=== PATIENT | male | born 1995 | race Hispanic/Latino ===

== ENCOUNTER 2017-05-05 03:05 | Emergency (ER) | payer OTHER ==
--- NOTE | 2017-05-05 04:01 | ED PDOC ---
HPI: Psych/Substance Abuse Time Seen by Provider: 05/05/17 03:39 Chief Complaint (Nursing): Alcohol Ingestion Chief Complaint (Provider): Alcohol Intoxication ED Caveat: Intoxicated History Per: Patient History/Exam Limitations: intoxication Onset/Duration Of Symptoms: Unknown Current Symptoms Are (Timing): Still Present Additional History Per: EMS Additional Complaint(s): Suman is a 21 y/o male who was brought to the ED via EMS for public intoxication. Additional history cannot be obtained due to patient's inability to answer. PMD: None Provided Past Medical History Reviewed: Historical Data, Nursing Documentation, Vital Signs Vital Signs: Last Vital Signs Temp 97.8 F 05/05/17 03:06 Pulse 121 H 05/05/17 03:06 Resp 16 05/05/17 03:06 BP 145/81 05/05/17 03:06 Pulse Ox 98 05/05/17 03:06 - Family History Family History: States: Unknown Family Hx - Allergies Allergies/Adverse Reactions: Allergies Allergy/AdvReac Type Severity Reaction Status Date / Time No Known Allergies Allergy Verified 05/05/17 03:13 Review of Systems Review Of Systems: ROS cannot be obtained secondary to pt's inabilty to answer questions. Physical Exam - Reviewed Nursing Documentation Reviewed: Yes Vital Signs Reviewed: Yes - Physical Exam Appears: Positive for: Well, Non-toxic, No Acute Distress Cardiovascular/Chest: Positive for: Regular Rate, Rhythm. Negative for: Murmur Respiratory: Positive for: Normal Breath Sounds. Negative for: Respiratory Distress Neurologic/Psych: Negative for: Alert, Oriented - ECG O2 Sat by Pulse Oximetry: 98 (RA) Pulse Ox Interpretation: Normal Medical Decision Making Medical Decision Making: Time: 3:40 Initial Impression: 21 y/o intoxicated male Initial Plan: --Alcohol Serum --Accucheck --Reevaluation Time: 7:00 --Patient signed out to Dr. Patrick pending sobriety. Scribe Attestation: Documented by Joss Lockhart, acting as a scribe for Abhijeet Patterson MD Provider Scribe Attestation: All medical record entries made by the Scribe were at my direction and personally dictated by me. I have reviewed the chart and agree that the record accurately reflects my personal performance of the history, physical exam, medical decision making, and the department course for this patient. I have also personally directed, reviewed, and agree with the discharge instructions and disposition. Disposition - Clinical Impression Clinical Impression: Alcohol intoxication - Patient ED Disposition Is Patient to be Admitted: Transfer of Care - Disposition Referrals: [facility] [Outside] Disposition: Transfer of Care Disposition Time: 07:00 Condition: GOOD Instructions: Alcohol Use - When Is Drinking a Problem? Patient Signed Over To: Giovanni Patrick
--- NOTE | 2017-05-05 07:45 | ED PDOC ---
- ECG O2 Sat by Pulse Oximetry: 97 - Progress ED Course And Treament: Assumed care from Dr Patterson. Pending clinical sobriety. Medical Decision Making Medical Decision Makin Patient is alert and awake. Ambulatory with steady gait. Stable for discharge. Disposition Doctor Will See Patient In The: Office Counseled Patient/Family Regarding: Studies Performed, Diagnosis, Need For Followup - Clinical Impression Clinical Impression: Alcohol intoxication - POA Present On Arrival: None - Disposition Referrals: [facility] [Outside] Disposition: Routine/Home Disposition Time: 08:24 Condition: GOOD Instructions: Alcohol Use - When Is Drinking a Problem?
[2017-05-05 08:35] VITALS: BP 107/59; PULSE 90; RESP 18; TEMP 97.9
[2017-05-09 01:46] VITALS: O2SAT 98
== END 2017-05-05 08:48 | disposition home or self-care (01) ==
LOC: H.ER 03:05
DX: F10.129 Alcohol abuse with intoxication, unspecified (principal)